=== PATIENT | female | born 1965 | race Caucasian/White ===

== ENCOUNTER → 2016-08-01 | Outpatient (CLI) | payer BC ==
[~2016-08-01] MED LIST: ALLEGRA 180MG180 MG PO; ESTROGEN PO
== END ==
LOC: MC.RAD 09:20
DX: Z12.31 Encounter for screening mammogram for malignant neoplasm of breast (principal)

== ENCOUNTER 2017-03-03 05:59 | Day surgery (SDC) | payer BC ==
[~2017-03-03] VITALS: Ht 152.4 cm; Wt 54.6 kg
[2017-03-03] MEDS ORDERED: ALLEGRA 180MG180 MG PO (06:22)
[2017-03-03] MEDS ORDERED: ESTROGEN PO (06:24)
[2017-03-03 06:39] VITALS: BP 120/81; PULSE 53; TEMP 98.3
[2017-03-03 07:40] VITALS: BP 105/74; PULSE 81; TEMP 97.5
[2017-03-03 07:45] VITALS: BP 103/69; PULSE 66
[2017-03-03 08:00] VITALS: BP 111/73; PULSE 64
== END 2017-03-03 08:20 | disposition home or self-care (01) ==
LOC: SDCO 05:59
DX: Z12.11 Encounter for screening for malignant neoplasm of colon (principal); D12.4 Benign neoplasm of descending colon; Z83.71 Family history of colonic polyps
CPT/HCPCS: J2250; J3010; J7030

== ENCOUNTER → 2017-07-31 | Outpatient (CLI) | payer BC | LOC: MC.RAD 09:19 | DX: Z12.31 Encounter for screening mammogram for malignant neoplasm of breast (principal) ==

== ENCOUNTER → 2018-08-06 | Outpatient (CLI) | payer BC | LOC: MC.RAD 09:13 | DX: Z12.31 Encounter for screening mammogram for malignant neoplasm of breast (principal); N63.10 Unspecified lump in the right breast, unspecified quadrant ==

== ENCOUNTER → 2018-08-08 | Outpatient (CLI) | payer BC | LOC: MC.RAD 06:58 | DX: N60.01 Solitary cyst of right breast (principal) ==

== ENCOUNTER → 2019-08-05 | Outpatient (CLI) | payer BC | LOC: MC.RAD 08:25 | DX: Z12.31 Encounter for screening mammogram for malignant neoplasm of breast (principal); N64.9 Disorder of breast, unspecified; N60.12 Diffuse cystic mastopathy of left breast; N60.11 Diffuse cystic mastopathy of right breast ==

== ENCOUNTER → 2020-08-03 | Outpatient (CLI) | payer BC | LOC: MC.RAD 08:57 | DX: Z12.31 Encounter for screening mammogram for malignant neoplasm of breast (principal); N63.20 Unspecified lump in the left breast, unspecified quadrant ==

== ENCOUNTER → 2020-08-06 | Outpatient (CLI) | payer BC | LOC: MC.RAD 07:37 | DX: N60.02 Solitary cyst of left breast (principal) ==

== ENCOUNTER → 2021-08-02 | Outpatient (CLI) | payer BC | LOC: MC.RAD 10:03 | DX: Z12.31 Encounter for screening mammogram for malignant neoplasm of breast (principal); N63.20 Unspecified lump in the left breast, unspecified quadrant; N63.10 Unspecified lump in the right breast, unspecified quadrant ==

== ENCOUNTER → 2021-08-05 | Outpatient (CLI) | payer BC | LOC: MC.RAD 07:36 | DX: N60.11 Diffuse cystic mastopathy of right breast (principal); N60.12 Diffuse cystic mastopathy of left breast ==

== ENCOUNTER → 2023-08-01 | Outpatient (CLI) | payer BC | LOC: CANSCHCLI → MC.RAD 07:00 | DX: Z12.31 Encounter for screening mammogram for malignant neoplasm of breast (principal); N63.20 Unspecified lump in the left breast, unspecified quadrant; N63.10 Unspecified lump in the right breast, unspecified quadrant ==

== ENCOUNTER → 2023-08-04 | Outpatient (CLI) | payer BC | LOC: MC.RAD 07:00 | DX: N60.12 Diffuse cystic mastopathy of left breast (principal); N60.11 Diffuse cystic mastopathy of right breast ==